=== PATIENT | female | born 1995 | race Two or more races ===

== ENCOUNTER 2018-03-21 12:36 | Inpatient (IN) | payer BC, MEDICAID, MEDICARE ==
[~2018-03-21] VITALS: Ht 162.6 cm; Wt 77.1 kg
[~2018-03-21 12:36] MED LIST: ADERALL PO; BECL8.7A7 IH; PARO20TA24 PO
[2018-03-21 13:54] LABS: BASOPHILS % (AUTO) 0.9 % (0.0-2.0); EOSINOPHILS % (AUTO) 0.9 % (1.0-6.0); HEMATOCRIT 39.9 % (36-46); HEMOGLOBIN 13.7 g/dL (12.0-16.0); LYMPHOCYTES # (AUTO) 2.6 K/uL (1.0-4.8); LYMPHOCYTES % (AUTO) 23.6 % (22.0-44.0); MEAN CORPUSCULAR HGB CONC 34.4 G/dL (31.0-37.0); MEAN CORPUSCULAR VOLUME 87 fL (80-100); MONOCYTES # (AUTO) 0.7 K/uL (0.1-1.0); MONOCYTES % (AUTO) 6.2 % (2.0-9.0); NEUTROPHILS # (AUTO) 7.7 K/uL (1.8-7.7); NEUTROPHILS % (AUTO) 68.4 % (40.0-70.0); PLATELET COUNT (AUTO) 386 K/uL (150-450); RED BLOOD CELL COUNT(AUTO) 4.58 MIL/uL (4.00-5.20); RED CELL DISTRIBUTION WIDTH 12.5 % (11.5-14.5)
[2018-03-21 13:58] LABS: ANION GAP 9 mmol/L (8-16); CALCIUM, TOTAL 8.9 mg/dL (8.8-10.5); CARBON DIOXIDE 27 mmol/L (22-29); CHLORIDE 102 mmol/L (98-107); GLOMERULAR FILTR. RATE CALC > 60 mL/min (>60); GLUCOSE,RANDOM 86 mg/dL (70-110); POTASSIUM 3.6 mmol/L (3.5-5.1); SODIUM SERUM 138 mmol/L (136-145); UREA NITROGEN, BLOOD 12 mg/dL (7-18)
[2018-03-21 14:03] LABS: ALANINE AMINOTRANSFERASE 39 U/L (12-78); ALBUMIN 3.7 g/dL (3.4-5.0); ALKALINE PHOSPHATASE 87 U/L (46-116); ASPARTATE AMINOTRANSFERASE 22 U/L (15-37); BILIRUBIN,TOTAL 0.5 mg/dL (0.1-1.0); TOTAL PROTEIN, SERUM 7.8 g/dL (6.4-8.2)
[2018-03-21 14:26] LABS: AMPHET/METH SCREEN,URINE NEGATIVE (NEGATIVE); BARBITURATE SCREEN, URINE NEGATIVE (NEGATIVE); BENZODIAZEPINES SCREEN,URINE NEGATIVE (NEGATIVE); CANNABINOID SCREEN,URINE NEGATIVE (NEGATIVE); COCAINE SCREEN,URINE NEGATIVE (NEGATIVE); METHADONE SCREEN, URINE NEGATIVE (NEGATIVE); OPIATE SCREEN,URINE NEGATIVE (NEGATIVE); PHENCYCLIDINE SCREEN,URINE NEGATIVE (NEGATIVE)
[2018-03-21] MEDS ORDERED: ZOLPIDEM TARTRATE 10 MG TABLET PO PRN (18:00)
[2018-03-21] MEDS ORDERED: HALOPERIDOL 5 MG TABLET PO PRN (18:00)
[2018-03-21] MEDS ORDERED: LORazepam 2 MG TABLET PO PRN (18:00)
[2018-03-21] MEDS: BusPIRone HCL 15 MG TABLET PO SCH (19:49)
[2018-03-21 20:43] VITALS: BP 102/66
[2018-03-21] MEDS ORDERED: PETROLATUM,WHITE 71 GM JELLY TP PRN (20:45)
[2018-03-21] MEDS ORDERED: DOCUSATE SODIUM 100 MG CAPSULE PO PRN (20:45)
[2018-03-21] MEDS ORDERED: IBUPROFEN 400 MG TABLET PO PRN (20:45)
[2018-03-21] MEDS ORDERED: LOPERAMIDE HCL 2 MG CAPSULE PO PRN (20:45)
[2018-03-21] MEDS ORDERED: MAGNESIUM HYDROXIDE SUSPENSION 30 ML UDCUP PO PRN (20:45)
[2018-03-21] MEDS ORDERED: ONDANSETRON HCL 4 MG TABLET PO PRN (20:45)
[2018-03-21] MEDS ORDERED: MAG HYDROX/AL HYDROX/SIMETH ES 30 ML SUSPENSION UDCUP PO PRN (20:45)
[2018-03-21] MEDS ORDERED: ACETAMINOPHEN 325 MG TABLET PO PRN (20:45)
[2018-03-21] MEDS ORDERED: ALBUTEROL SULFATE HFA 90 MCG/PUFF 8 GM INHALER IH PRN (20:45)
[2018-03-21] MEDS ORDERED: CloNIDine HCL 0.1 MG TABLET PO PRN (20:45)
[2018-03-21] MEDS ORDERED: PARoxetine HCL 20 MG TABLET PO SCH (21:00)
[2018-03-22 03:14] VITALS: BP 98/57
[2018-03-22 06:40] LABS: HEMOGLOBIN A1C 5.3 % (4.5-6.2)
[2018-03-22 07:09] LABS: CHOL/HDL RATIO 4.7 (3.9-5.7); CHOLESTEROL 150 mg/dL (131-200); HCG,QUANTITATIVE < 1 mIU/mL (0-6); HDL CHOLESTEROL 32 mg/dL (40-60); LDL CHOL (CALC.) 103 mg/dL (0-130); THYROID STIMULATING HORMONE 1.49 uIU/mL (0.36-3.74); TRIGLYCERIDES 75 mg/dL (15-150)
[2018-03-22 08:41] VITALS: BP 96/65
[2018-03-22] MEDS ORDERED: NICOTINE 14 MG/24 HOUR PATCH TD SCH (09:00)
[2018-03-22] MEDS: BECLOMETHASONE DIPR HFA 80 MCG/PUFF 10.6 GM INHALER IH SCH ×2 (09:04→17:09)
[2018-03-22] MEDS: BusPIRone HCL 15 MG TABLET PO SCH ×2 (09:05→17:09)
[2018-03-22 17:00] VITALS: BP 98/52
[2018-03-22] MEDS: PARoxetine HCL 20 MG TABLET PO SCH (20:53)
[2018-03-23 08:31] VITALS: BP 105/68
[2018-03-23] MEDS: BusPIRone HCL 15 MG TABLET PO SCH ×2 (09:17→17:20)
[2018-03-23] MEDS: BuPROPion HCL XL 150 MG ER TABLET PO SCH (09:17)
[2018-03-23] MEDS: BECLOMETHASONE DIPR HFA 80 MCG/PUFF 10.6 GM INHALER IH SCH ×2 (09:18→17:20)
[2018-03-23 17:00] VITALS: BP 104/63
[2018-03-23] MEDS: PARoxetine HCL 20 MG TABLET PO SCH (20:11)
[2018-03-24] MEDS: BusPIRone HCL 15 MG TABLET PO SCH ×2 (08:54→16:36)
[2018-03-24] MEDS: BuPROPion HCL XL 150 MG ER TABLET PO SCH (08:54)
[2018-03-24] MEDS: BECLOMETHASONE DIPR HFA 80 MCG/PUFF 10.6 GM INHALER IH SCH ×2 (08:54→16:36)
[2018-03-24 09:21] VITALS: BP 100/61
[2018-03-24] MEDS ORDERED: BUPR-93 PO (15:58)
[2018-03-24] MEDS ORDERED: BUSP15 PO (15:58)
[2018-03-25] MEDS ORDERED: BuPROPion HCL XL 150 MG ER TABLET PO SCH (09:00)
== END 2018-03-24 17:30 | disposition home or self-care (01) | DRG 885 ==
LOC: EMS 12:36 → 3EX 18:49
PROVIDERS: ADMIT Psychiatry & Neurology Psychiatry; ATTEND Psychiatry & Neurology Psychiatry
DX: F33.2 Major depressive disorder, recurrent severe without psychotic features (principal); R45.851 Suicidal ideations; D72.829 Elevated white blood cell count, unspecified; J45.909 Unspecified asthma, uncomplicated; W26.0XXA Contact with knife, initial encounter; F41.9 Anxiety disorder, unspecified; I95.9 Hypotension, unspecified; R45.87 Impulsiveness; Y92.89 Other specified places as the place of occurrence of the external cause; Y99.8 Other external cause status
CPT/HCPCS: 83036; 84443; 99285; G0480; J3535